=== PATIENT | female | born 1935 | race Caucasian/White ===

== ENCOUNTER 2019-06-13 20:20 | Emergency (ER) | payer MEDICARE, BC ==
[2019-06-13 20:58] VITALS: BP 158/54; PULSE 69
--- NOTE | 2019-06-13 20:59 | EDM.PDOC ---
ED HPI GENERAL MEDICAL PROBLEM - General Chief Complaint: Fever Stated Complaint: NOT EATING OR DRINKING/FEVER Time Seen by Provider: 06/13/19 20:49 Source of Information: Reports: Family, Penitentiary Records, RN Notes Reviewed History Limitations: Reports: Physical Impairment - History of Present Illness INITIAL COMMENTS - FREE TEXT/NARRATIVE: 84-year-old female presents emergency department today was sent over from the retirement. She has a history of significant dementia per report from retirement staff she was hypoxic in the mid 80s and did have a fever. However upon arrival here she has no fever and oxygen saturation is 97%. She does have a significant history of dementia so no review of systems is obtained most of the history is taken from family members - Related Data Allergies Allergy/AdvReac Type Severity Reaction Status Date / Time No Known Allergies Allergy Verified 03/28/15 12:42 Home Meds: Home Meds Calcium Carbonate/Vitamin D3 [Calcium 600-Vit D3 400 Tablet] 1 tab PO TID [History] Cholecalciferol (Vitamin D3) [Vitamin D3] 1 tab PO DAILY 05/20/14 [History] Donepezil HCl [Aricept] 10 mg PO DAILY 05/20/14 [History] Furosemide 20 mg PO DAILY 05/20/14 [History] Levothyroxine Sodium 75 mcg PO DAILY 05/20/14 [History] Polyethylene Glycol [Polyox [id number]] 17 gm PO DAILY 05/20/14 [History] Potassium Chloride 2 tab PO BID 05/20/14 [History] QUEtiapine Fumarate [Seroquel] 100 mg PO BID 05/20/14 [History] QUEtiapine [SEROquel] 25 mg PO BID 05/20/14 [History] Acetaminophen [Tylenol] 325 mg PO Q4H PRN 07/30/14 [History] FLUoxetine HCl [Prozac] 20 mg PO DAILY 06/13/19 [History] Famotidine 20 mg PO DAILY 06/13/19 [History] Loperamide [Imodium] 2 mg PO DAILY 06/13/19 [History] Past Medical History Cardiovascular History: Reports: CAD, Hypertension, Stents [employer] History: Reports: Musculoskeletal History: Reports: Fracture Other Musculoskeletal History: hip surgery. osteoporosis Other Neuro History: dementia Psychiatric History: Reports: Dementia, Depression, OCD Endocrine/Metabolic History: Reports: Diabetes, Type II, Hypothyroidism - Past Surgical History Cardiovascular Surgical History: Reports: Coronary Artery Stent Female Surgical History: Reports: Breast Biopsy Oncologic Surgical History: Reports: Biopsy of Breast, Lumpectomy Social & Family History - Family History Family Medical History: Noncontributory - Tobacco Use Smoking Status *Q: Never Smoker - Caffeine Use Caffeine Use: Reports: None - Recreational Drug Use Recreational Drug Use: No ED ROS GENERAL - Review of Systems Review Of Systems: Unable To Obtain Reason Not Obtained: Dementia ED EXAM, GENERAL - Physical Exam Exam: See Below Exam Limited By: Physical Impairment General Appearance: Alert, No Apparent Distress Respiratory/Chest: No Respiratory Distress, Lungs Clear, Normal Breath Sounds, No Accessory Muscle Use, Chest Non-Tender Cardiovascular: Regular Rate, Rhythm, No Murmur GI/Abdominal: Soft, Non-Tender Extremities: Normal Inspection, No Pedal Edema Course - Vital Signs Last Recorded V/S: Last Vital Signs Temp 97.1 F 06/13/19 20:40 Pulse 69 06/13/19 20:40 Resp 16 06/13/19 20:40 BP 158/54 H 06/13/19 20:40 Pulse Ox 97 06/13/19 20:40 Departure - Departure Time of Disposition: 20:58 Disposition: Home, Self-Care 01 Condition: Fair Clinical Impression: Evaluation by medical service required - Discharge Information Referrals: PCP,None [Primary Care Provider] - Additional Instructions: Follow-up with primary care as needed - Assessment/Plan Plan: Assessment Acuity = acute Site and laterality = evaluation for fever and hypoxia Etiology = none Manifestations = none Location of injury = Home Lab values = none Plan Discussed with family options which include blood work and urine however they declined because her vital signs were within normal limits elected to follow-up with primary care as needed This note was dictated using [employer] recognition software please call with any questions on syntax or grammar.
== END 2019-06-13 21:09 | disposition home or self-care (01) ==
LOC: JP.ED 20:20
DX: Z00.8 Encounter for other general examination (principal); I10 Essential (primary) hypertension; I25.10 Atherosclerotic heart disease of native coronary artery without angina pectoris; E11.9 Type 2 diabetes mellitus without complications; E03.9 Hypothyroidism, unspecified; Z95.5 Presence of coronary angioplasty implant and graft; Z79.890 Hormone replacement therapy
CPT/HCPCS: 99283

== ENCOUNTER 2019-09-14 18:37 | Emergency (ER) | payer MEDICARE, BC ==
[2019-09-14 18:59] VITALS: BP 165/66; PULSE 73
--- NOTE | 2019-09-14 19:07 | EDM.PDOC ---
ED HPI GENERAL MEDICAL PROBLEM - General Chief Complaint: Trauma Stated Complaint: FELL Time Seen by Provider: 09/14/19 18:40 Source of Information: Reports: Patient, EMS, Old Records History Limitations: Reports: No Limitations - History of Present Illness INITIAL COMMENTS - FREE TEXT/NARRATIVE: 84 yo female LOCATED WITHIN [facility] resident fell today, unwitnessed. Seemed to have possible hip injury. EMS transported after fentanyl 50 mcg. No limb shortening noted. Has severe dementia. Onset: Today Onset Date: 09/14/19 Duration: Minutes: Location: Reports: Pelvis, Lower Extremity, Left Quality: Reports: Ache Severity: Moderate (?) Improves with: Reports: Medication Worsens with: Reports: Movement Context: Reports: Trauma Associated Symptoms: Reports: No Other Symptoms Treatments BOAT PILOT: Reports: Other (see below) (See HPI) - Related Data Allergies Allergy/AdvReac Type Severity Reaction Status Date / Time No Known Allergies Allergy Verified 03/28/15 12:42 Home Meds: Home Meds Calcium Carbonate/Vitamin D3 [Calcium 600-Vit D3 400 Tablet] 1 tab PO TID [History] Donepezil HCl [Aricept] 10 mg PO DAILY 05/20/14 [History] Levothyroxine Sodium 75 mcg PO DAILY 05/20/14 [History] Potassium Chloride 4 tab PO BID 05/20/14 [History] QUEtiapine Fumarate [Seroquel] 100 mg PO BID 05/20/14 [History] Acetaminophen [Tylenol] 650 mg PO Q4H PRN 07/30/14 [History] FLUoxetine HCl [Prozac] 20 mg PO DAILY 06/13/19 [History] Famotidine 20 mg PO DAILY 06/13/19 [History] Loperamide [Imodium] 2 mg PO DAILY 06/13/19 [History] Polyethylene Glycol 3350 [Gavilax] 34 gm PO DAILY PRN 09/14/19 [History] Qc Fiberlax 625 Mg 625 mg PO BID 09/14/19 [History] Past Medical History Cardiovascular History: Reports: CAD, Hypertension, Stents [employer] MANAGER History: Reports: Musculoskeletal History: Reports: Fracture Other Musculoskeletal History: hip surgery. osteoporosis Other Neuro History: dementia Psychiatric History: Reports: Dementia, Depression, OCD Endocrine/Metabolic History: Reports: Diabetes, Type II, Hypothyroidism - Past Surgical History Cardiovascular Surgical History: Reports: Coronary Artery Stent Female Surgical History: Reports: Breast Biopsy Oncologic Surgical History: Reports: Biopsy of Breast, Lumpectomy Social & Family History - Family History Family Medical History: Noncontributory - Caffeine Use Caffeine Use: Reports: None Review of Systems - Review of Systems Review Of Systems: Unable To Obtain (severe dementia) Reason Not Obtained: dementia Constitutional: Reports: No Symptoms ED EXAM, GENERAL - Physical Exam Exam: See Below Exam Limited By: No Limitations General Appearance: Alert, WD/WN, No Apparent Distress Eye Exam: Bilateral Eye: Normal Inspection Ears: Normal External Exam, Normal Canal Ear Exam: Bilateral Ear: Auricle Normal, Canal Normal Nose: Normal Inspection, No Blood Throat/Mouth: Normal Inspection, Normal Lips, Normal Oropharynx, Normal Voice, No Airway Compromise Head: Atraumatic, Normocephalic Neck: Normal Inspection Respiratory/Chest: No Respiratory Distress, Lungs Clear, Normal Breath Sounds, No Accessory Muscle Use Cardiovascular: Regular Rate, Rhythm, No Edema GI/Abdominal: Normal Bowel Sounds, Soft, Non-Tender, No Distention Back Exam: Normal Inspection. No: CVA Tenderness (R), CVA Tenderness (L) Extremities: Normal Inspection, No Pedal Edema, Other (No apparent pain with internal/external rotation, but can't lift left leg off cart.) Neurological: Alert, CN II-XII Intact, No Motor/Sensory Deficits. No: Oriented , Normal Cognition Skin Exam: Warm, Dry, Intact, Normal Color, No Rash Course - Vital Signs Last Recorded V/S: Last Vital Signs Temp 35.9 C L 09/14/19 18:54 Pulse 73 09/14/19 19:06 Resp 16 09/14/19 19:06 BP 165/66 H 09/14/19 19:06 Pulse Ox 97 09/14/19 19:06 - Orders/Labs/Meds Orders: Active Orders 24 hr Category Date Time Status Hip Min 2V or 3V w Pelvis Lt [CR] Stat Exams 09/14/19 18:39 Ordered - Radiology Interpretation Free Text/Narrative:: L hip and pelvis [id number] acute, old L hip fracture Departure - Departure Time of Disposition: 19:29 Disposition: Home, Self-Care 01 Condition: Fair Clinical Impression: Fall in elderly patient - Discharge Information *PRESCRIPTION DRUG MONITORING PROGRAM REVIEWED*: No *COPY OF PRESCRIPTION DRUG MONITORING REPORT IN PATIENT SERVANDO: No Forms: ED Department Discharge Additional Instructions: Recheck as needed. No acute findings on X-rays of hip and pelvis today. Sepsis Event Note - Focused Exam Vital Signs: Vital Signs Temp Pulse Resp BP Pulse Ox 09/14/19 19:06 73 16 165/66 H 97 09/14/19 18:54 35.9 C L 73 16 165/66 H 97 Date Exam was Performed: 09/14/19 Time Exam was Performed: 19:29 - My Orders Last 24 Hours: My Active Orders 09/14/19 18:39 Hip Min 2V or 3V w Pelvis Lt [CR] Stat - Assessment/Plan Last 24 Hours: My Active Orders 09/14/19 18:39 Hip Min 2V or 3V w Pelvis Lt [CR] Stat
--- NOTE | 2019-09-14 19:44 | CRLCR ---
INDICATION: Fall. COMPARISON: 05/20/2014. 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 No new fracture identified. No dislocation. Dictated by Henry Garcia MD @ 09/14/2019 7:39:24 PM Dictated by: Henry Garcia MD @ 09/14/2019 19:41:54 (Electronically Signed)
== END 2019-09-14 20:14 | disposition home or self-care (01) ==
LOC: JP.ED 18:37
DX: Z04.3 Encounter for examination and observation following other accident (principal); I10 Essential (primary) hypertension; E11.9 Type 2 diabetes mellitus without complications; E03.9 Hypothyroidism, unspecified; I25.10 Atherosclerotic heart disease of native coronary artery without angina pectoris; F32.9 Major depressive disorder, single episode, unspecified; Z79.899 Other long term (current) drug therapy
CPT/HCPCS: 73502-LT; 99282; 99284-25

== ENCOUNTER 2020-06-09 15:24 | Emergency (ER) | payer MEDICARE, BC ==
[2020-06-09 15:34] VITALS: BP 147/99; PULSE 58
--- NOTE | 2020-06-09 15:58 | EDM.PDOC ---
ED HPI GENERAL MEDICAL PROBLEM - General Chief Complaint: General Stated Complaint: COVID SYMPTOMS VIA [place] Time Seen by Provider: 06/09/20 15:45 Source of Information: Reports: EMS, Old Records, RN. Denies: Patient History Limitations: Reports: Other (severe dementia) - History of Present Illness INITIAL COMMENTS - FREE TEXT/NARRATIVE: 85 yo female from the memory care unit at [facility] is sent via EMS for evaluation of a cough and congestion that began last Tuesday. No SOB. Was tested for Covid on Tuesday and the test is pending. Is a no code. Reportedly had a fever earlier. Is weaker than usual. Onset: Gradual Onset Date: 06/06/20 Duration: Day(s):, Constant Location: Reports: Face (nose), Chest Quality: Reports: Other (uncertain, not able to tell us.) Severity: Mild Improves with: Reports: None Worsens with: Reports: None Context: Reports: Other (See HPI) Associated Symptoms: Reports: Cough, Fever/Chills (not currently). Denies: Shortness of Breath Treatments FLAMER AFTER LASTING: Reports: Other (see below) (none) - Related Data Allergies Allergy/AdvReac Type Severity Reaction Status Date / Time No Known Allergies Allergy Verified 03/28/15 12:42 Home Meds: Home Meds Calcium Carbonate/Vitamin D3 [Calcium 600-Vit D3 400 Tablet] 1 tab PO TID 05/20/14 [History] Donepezil HCl [Aricept] 10 mg PO DAILY 05/20/14 [History] Levothyroxine Sodium 75 mcg PO DAILY 05/20/14 [History] Potassium Chloride 4 tab PO BID 05/20/14 [History] QUEtiapine Fumarate [Seroquel] 100 mg PO BID 05/20/14 [History] Acetaminophen [Tylenol] 650 mg PO Q4H PRN 07/30/14 [History] FLUoxetine HCl [Prozac] 20 mg PO DAILY 06/13/19 [History] Famotidine 20 mg PO DAILY 06/13/19 [History] Loperamide [Imodium] 2 mg PO DAILY 06/13/19 [History] Qc Fiberlax 625 Mg 625 mg PO BID 09/14/19 [History] polyethylene glycoL 3350 [Gavilax] 34 gm PO DAILY PRN 09/14/19 [History] Past Medical History Cardiovascular History: Reports: CAD, Hypertension, Stents [employer] History: Reports: Musculoskeletal History: Reports: Fracture Other Musculoskeletal History: hip surgery. osteoporosis Other Neuro History: dementia Psychiatric History: Reports: Dementia, Depression, OCD Endocrine/Metabolic History: Reports: Diabetes, Type II, Hypothyroidism - Infectious Disease History Infectious Disease History: Reports: Chicken Pox, Measles, Mumps - Past Surgical History Cardiovascular Surgical History: Reports: Coronary Artery Stent Female Surgical History: Reports: Breast Biopsy Oncologic Surgical History: Reports: Biopsy of Breast, Lumpectomy Social & Family History - Family History Family Medical History: No Pertinent Family History - Tobacco Use Tobacco Use Status *Q: Unknown Ever Used Tobacco - Caffeine Use Caffeine Use: Reports: Coffee - Recreational Drug Use Recreational Drug Use: No ED ROS GENERAL - Review of Systems Review Of Systems: Unable To Obtain (due to severe dementia) Reason Not Obtained: dementia Constitutional: Reports: Fever (earlier in course?), Weakness (generalized weakness is reported by [facility]) HEENT: Reports: Other (congestion reported by staff at [facility]) Respiratory: Reports: Cough (reported by [facility] staff). Denies: Shortness of Breath, Wheezing, Sputum Cardiovascular: Reports: No Symptoms ED EXAM, GENERAL - Physical Exam Exam: See Below Exam Limited By: No Limitations General Appearance: Alert, WD/WN, No Apparent Distress Eye Exam: Bilateral Eye: Normal Inspection Ears: Normal External Exam, Normal Canal, Hearing Grossly Normal, Normal TMs Ear Exam: Bilateral Ear: Auricle Normal, Canal Normal, TM normal Nose: Normal Inspection, No Blood Throat/Mouth: Normal Inspection, Normal Lips, Normal Oropharynx, Normal Voice, No Airway Compromise Head: Atraumatic, Normocephalic Neck: Normal Inspection Respiratory/Chest: No Respiratory Distress, Lungs Clear, Normal Breath Sounds, No Accessory Muscle Use Cardiovascular: Regular Rate, Rhythm, No Edema GI/Abdominal: Normal Bowel Sounds, Soft, Non-Tender, No Distention Neurological: Alert, CN II-XII Intact, No Motor/Sensory Deficits. No: Oriented (confused, baseline), Normal Cognition Skin Exam: Warm, Dry, Intact, Normal Color, No Rash Course - Vital Signs Last Recorded V/S: Last Vital Signs Temp 36.8 C 06/09/20 15:28 Pulse 58 L 06/09/20 15:28 Resp 20 06/09/20 15:28 BP 147/99 H 06/09/20 15:28 Pulse Ox 98 06/09/20 15:28 - Orders/Labs/Meds Labs: Laboratory Tests 06/09/20 06/09/20 06/09/20 Range/Units 16:07 16:07 16:07 WBC 4.0 L (4.5-11.0) K/uL RBC 4.71 (3.30-5.50) M/uL Hgb 13.3 (12.0-15.0) g/dL Hct 42.2 (36.0-48.0) % MCV 90 (80-98) fL MCH 28 (27-31) pg MCHC 32 (32-36) % Plt Count 100 L (150-400) K/uL Sodium 144 (140-148) mmol/L Potassium 4.0 (3.6-5.2) mmol/L Chloride 106 (100-108) mmol/L Carbon Dioxide 27 (21-32) mmol/L Anion Gap 10.6 (5.0-14.0) mmol/L BUN 18 (7-18) mg/dL Creatinine 1.2 H (0.6-1.0) mg/dL Est Cr Clr Drug Dosing 24.17 mL/min Estimated GFR (MDRD) 43 L (>60) Glucose 113 H (74-106) mg/dL Calcium 8.9 (8.5-10.1) mg/dL C-Reactive Protein < 0.05 (0.0-0.3) mg/dL Departure - Departure Time of Disposition: 16:45 Disposition: Home, Self-Care 01 Condition: Fair Clinical Impression: Viral respiratory illness - Discharge Information *PRESCRIPTION DRUG MONITORING PROGRAM REVIEWED*: Not Applicable *COPY OF PRESCRIPTION DRUG MONITORING REPORT IN PATIENT SERVANDO: Not Applicable Referrals: PCP,None [Primary Care Provider] - Forms: ED Department Discharge Additional Instructions: Continue usual medications. Recheck if worse. Sepsis Event Note (ED) - Evaluation Sepsis Screening Result: No Definite Risk - Focused Exam Vital Signs: Vital Signs Temp Pulse Resp BP Pulse Ox 06/09/20 15:28 36.8 C 58 L 20 147/99 H 98
== END 2020-06-09 17:18 | disposition home or self-care (01) ==
LOC: JP.ED 15:24
DX: B34.9 Viral infection, unspecified (principal); R41.0 Disorientation, unspecified; I25.10 Atherosclerotic heart disease of native coronary artery without angina pectoris; I10 Essential (primary) hypertension; F32.9 Major depressive disorder, single episode, unspecified; E11.9 Type 2 diabetes mellitus without complications; E03.9 Hypothyroidism, unspecified; F03.90 Unspecified dementia, unspecified severity, without behavioral disturbance, psychotic disturbance, mood disturbance, and anxiety; Z79.899 Other long term (current) drug therapy
CPT/HCPCS: 36415; 80048; 85027; 86140; 99284

== ENCOUNTER 2020-06-12 06:42 | Emergency (ER) | payer MEDICARE, BC ==
[2020-06-12 07:03] VITALS: BP 160/53; PULSE 69
--- NOTE | 2020-06-12 07:29 | EDM.PDOC ---
ED HPI GENERAL MEDICAL PROBLEM - General Chief Complaint: General Stated Complaint: COVID POSITIVE Time Seen by Provider: 06/12/20 07:11 Source of Information: Reports: Patient, EMS, RN Notes Reviewed History Limitations: Reports: Physical Impairment - History of Present Illness INITIAL COMMENTS - FREE TEXT/NARRATIVE: 85-year-old female presents emergency department today via EMS services for evaluation, she is a long-term resident of memory care unit severe dementia history of chronic pain so no history is obtained from her. The history obtained from EMS states that she was found on the floor this morning she is a Beth lift so does not ambulate she is also Covid positive. Unknown mechanism of action suspect probably rolled out of bed - Related Data Allergies Allergy/AdvReac Type Severity Reaction Status Date / Time No Known Allergies Allergy Verified 03/28/15 12:42 Home Meds: Home Meds Calcium Carbonate/Vitamin D3 [Calcium 600-Vit D3 400 Tablet] 1 tab PO TID 05/20/14 [History] Donepezil HCl [Aricept] 10 mg PO DAILY 05/20/14 [History] Levothyroxine Sodium 75 mcg PO DAILY 05/20/14 [History] Potassium Chloride 4 tab PO BID 05/20/14 [History] QUEtiapine Fumarate [Seroquel] 100 mg PO BID 05/20/14 [History] Acetaminophen [Tylenol] 650 mg PO Q4H PRN 07/30/14 [History] FLUoxetine HCl [Prozac] 20 mg PO DAILY 06/13/19 [History] Famotidine 20 mg PO DAILY 06/13/19 [History] Loperamide [Imodium] 2 mg PO DAILY 06/13/19 [History] Qc Fiberlax 625 Mg 625 mg PO BID 09/14/19 [History] polyethylene glycoL 3350 [Gavilax] 34 gm PO DAILY PRN 09/14/19 [History] Past Medical History Cardiovascular History: Reports: CAD, Hypertension, Stents 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 osteoporosis Other Neuro History: dementia Psychiatric History: Reports: Dementia, Depression, OCD Endocrine/Metabolic History: Reports: Diabetes, Type II, Hypothyroidism - Infectious Disease History Infectious Disease History: Reports: Chicken Pox, Measles, Mumps - Past Surgical History Cardiovascular Surgical History: Reports: Coronary Artery Stent Female Surgical History: Reports: Breast Biopsy Oncologic Surgical History: Reports: Biopsy of Breast, Lumpectomy Social & Family History - Family History Family Medical History: No Pertinent Family History - Tobacco Use Tobacco Use Status *Q: Unknown Ever Used Tobacco - Caffeine Use Caffeine Use: Reports: Coffee ED ROS GENERAL - Review of Systems Review Of Systems: Unable To Obtain Reason Not Obtained: Severe dementia ED EXAM, GENERAL - Physical Exam Exam: See Below Free Text/Narrative:: On physical observation I do not appreciate any bruising there is no erythema that could be noted on any of the extremities or the torso the head appears to be atraumatic pressure is applied over all joints and pelvic rocks does not elicit any pain no tenderness shoulders elbows wrists bilaterally knees ankles bilaterally Exam Limited By: Physical Impairment General Appearance: Alert, No Apparent Distress Respiratory/Chest: No Respiratory Distress, Decreased Breath Sounds, Rhonchi Cardiovascular: Regular Rate, Rhythm, No Murmur Course - Vital Signs Last Recorded V/S: Last Vital Signs Temp 97.8 F 06/12/20 07:01 Pulse 69 06/12/20 07:01 Resp 18 06/12/20 07:01 BP 160/53 H 06/12/20 07:01 Pulse Ox 94 L 06/12/20 07:01 - Re-Assessments/Exams Free Text/Narrative Re-Assessment/Exam: 06/12/20 07:29 I did speak with the daughter she asked to move to comfort care only Departure - Departure Time of Disposition: 07:28 Disposition: DC/Tfer to Exp[facility] Duty [facility] Condition: Poor Clinical Impression: Fall in elderly patient, COVID-19 - Discharge Information Referrals: PCP,None [Primary Care Provider] - Sepsis Event Note (ED) - Evaluation Sepsis Screening Result: No Definite Risk - Focused Exam Vital Signs: Vital Signs Temp Pulse Resp BP Pulse Ox 06/12/20 07:01 97.8 F 69 18 160/53 H 94 L - Assessment/Plan Plan: Assessment Acuity = acute Site and laterality = fall Etiology = unknown Manifestations = none Location of injury = Home Lab values = none Plan Plans discharge back to memory care unit unfortunately because she is Covid positive and requires a Beth lift will have to transfer her via EMS services This note was dictated using [employer] voice recognition software please call with any questions on syntax or grammar.
== END 2020-06-12 08:09 ==
LOC: JP.ED 06:42
DX: U07.1 COVID-19 (principal); I25.10 Atherosclerotic heart disease of native coronary artery without angina pectoris; I10 Essential (primary) hypertension; F03.90 Unspecified dementia, unspecified severity, without behavioral disturbance, psychotic disturbance, mood disturbance, and anxiety; F32.9 Major depressive disorder, single episode, unspecified; E11.9 Type 2 diabetes mellitus without complications; E03.9 Hypothyroidism, unspecified; Z79.899 Other long term (current) drug therapy; Z95.5 Presence of coronary angioplasty implant and graft
CPT/HCPCS: 99284